=== PATIENT | female | born 1970 | race Caucasian/White ===

== ENCOUNTER 2016-12-07 23:07 | Emergency (ER) | payer OTHER ==
[2016-12-08 00:35] LABS: HEMOGLOBIN 11.2 gm/dl (12.3-15.3); RED BLOOD COUNT 2.47 M/UL (4.00-5.10)
[2016-12-08 00:55] LABS: BUN/CREATININE RATIO 8 (0-10)
== END 2016-12-08 05:00 | disposition home or self-care (01) ==
LOC: ER1 23:07
PROVIDERS: Emergency Medicine
DX: S51.812A Laceration without foreign body of left forearm, initial encounter (principal); F32.9 Major depressive disorder, single episode, unspecified; X78.9XXA Intentional self-harm by unspecified sharp object, initial encounter
CPT/HCPCS: 36415; 80053; 80307; 81001; 83690; 84703; 85025; 87086; 93005; 99283; G0480

== ENCOUNTER 2016-12-19 16:33 | Observation (INO) | payer OTHER ==
[~2016-12-19] VITALS: Ht 165.1 cm; Wt 63.5 kg
[2016-12-19 17:03] LABS: HEMOGLOBIN 11.8 gm/dl (12.3-15.3); RED BLOOD COUNT 2.64 M/UL (4.00-5.10)
[2016-12-19 17:37] LABS: BUN/CREATININE RATIO 19 (0-10)
[2016-12-20 04:38] LABS: HEMOGLOBIN 10.2 gm/dl (12.3-15.3)
[2016-12-20 04:40] LABS: RED BLOOD COUNT 2.25 M/UL (4.00-5.10); WHITE BLOOD COUNT 3.5 K/UL (4.5-11.0)
[2016-12-20 04:53] LABS: BUN/CREATININE RATIO 20 (0-10)
[2016-12-20] MEDS ORDERED: ASPIRIN81 MG PO (17:21)
[2016-12-20] MEDS ORDERED: LIPITOR TAB 2020 MG PO (17:22)
[2016-12-20] MEDS ORDERED: VITAMIN B-121000 MC3 PO (17:23)
[2016-12-20] MEDS ORDERED: LISINOPRIL5 MG PO (17:24)
[2016-12-20] MEDS ORDERED: METOPROLOL TART25 MG PO (17:25)
[2016-12-20] MEDS ORDERED: NITROSTAT 0.40.4 MG SL (17:27)
== END 2016-12-20 17:50 | disposition home or self-care (01) ==
LOC: ER1 16:33 → ZEROF 18:01 → PROG CARE 18:35 → ZEROF 18:35 → PROG CARE 21:30
PROVIDERS: Family Medicine; ADMIT Internal Medicine
DX: R07.9 Chest pain, unspecified (principal); D51.9 Vitamin B12 deficiency anemia, unspecified; I25.10 Atherosclerotic heart disease of native coronary artery without angina pectoris; I25.2 Old myocardial infarction; E78.5 Hyperlipidemia, unspecified; F17.210 Nicotine dependence, cigarettes, uncomplicated; Z79.82 Long term (current) use of aspirin; Z79.899 Other long term (current) drug therapy; Z90.710 Acquired absence of both cervix and uterus
CPT/HCPCS: ECHO; 36415; 71010; 78452; 80048; 80053; 82550; 82553; 82607; 82746; 83874; 83921; 84484; 85025; 85027; 85610; 85730; 93005; 93017; 93306; 96374; 96375; 96376; 99285; A9502; G0378; J0280; J1650; J2270; J2405; J2785; J7030

== ENCOUNTER 2020-09-19 11:02 | Observation (INO) | payer OTHER ==
[~2020-09-19] VITALS: Ht 165.1 cm; Wt 81.6 kg
[~2020-09-19 11:02] MED LIST: ASPIRIN81 MG PO; ATORVASTATIN CA20 MG PO; BRILINTA 90 MG90 MG PO; CEFUROXIME250 MG PO; ECOTRIN81 MG PO; LIPITOR TAB 2020 MG PO; LISINOPRIL5 MG PO; LOPRESSOR 25 MG25 MG PO; METOPROLOL TART25 MG PO; NITROSTAT 0.40.4 MG SL; NITROSTAT0.4 MG SL; PHENERGAN 25 MG25 M1 PO; PLAVIX 75 MG TA75 MG PO; TYLENOL 325MG325 MG PO; VENTOLIN HFA 66.7 GM INH; VITAMIN B-1000 MCG/M SQ; VITAMIN B-121000 MC3 PO
[2020-09-19 11:50] LABS: HEMOGLOBIN 13.3 gm/dl (12.3-15.3); RED BLOOD COUNT 4.95 M/UL (4.00-5.10); WHITE BLOOD COUNT 5.3 K/UL (4.5-11.0)
[2020-09-19 12:08] LABS: BUN/CREATININE RATIO 12 (0-10)
[2020-09-19] MEDS ORDERED: ATORVASTATIN CA40 MG PO (13:51)
[2020-09-19] MEDS ORDERED: CYANOCOBAL1000 MCG/1 INJ (13:52)
[2020-09-19] MEDS ORDERED: DOCUSATE SODIU100 MG PO (13:52)
[2020-09-20 02:07] LABS: HEMOGLOBIN 12.4 gm/dl (12.3-15.3); RED BLOOD COUNT 4.54 M/UL (4.00-5.10); WHITE BLOOD COUNT 5.4 K/UL (4.5-11.0)
[2020-09-20 02:33] LABS: BUN/CREATININE RATIO 18 (0-10)
== END 2020-09-20 19:55 | disposition home or self-care (01) ==
LOC: ER1 11:02 → MED SURG 4 13:25 → CDU 13:25 → MED SURG 4 20:28
PROVIDERS: Emergency Medicine; Physician Assistant Medical; ADMIT Internal Medicine
DX: R07.9 Chest pain, unspecified (principal); I25.119 Atherosclerotic heart disease of native coronary artery with unspecified angina pectoris; I25.2 Old myocardial infarction; I10 Essential (primary) hypertension; F17.210 Nicotine dependence, cigarettes, uncomplicated; F12.90 Cannabis use, unspecified, uncomplicated; E78.5 Hyperlipidemia, unspecified; I25.5 Ischemic cardiomyopathy; F41.9 Anxiety disorder, unspecified; Z95.1 Presence of aortocoronary bypass graft; Z95.5 Presence of coronary angioplasty implant and graft; Z90.710 Acquired absence of both cervix and uterus; Z82.49 Family history of ischemic heart disease and other diseases of the circulatory system; Z79.82 Long term (current) use of aspirin; Z79.899 Other long term (current) drug therapy; Z91.14 Patient's other noncompliance with medication regimen; Z20.822 Contact with and (suspected) exposure to COVID-19
CPT/HCPCS: 36415; 71045; 80048; 80053; 80061; 82550; 82553; 83690; 83735; 83874; 84484; 84703; 85025; 85027; 85610; 85730; 93005; 96374; 96375; 99285; G0378; J2270; J2405; J3420; U0002

== ENCOUNTER 2021-06-09 13:58 | Emergency (ER) | payer OTHER ==
[~2021-06-09 13:58] MED LIST changes: +ATORVASTATIN CA40 MG PO; +CYANOCOBAL1000 MCG/1 INJ; +DOCUSATE SODIU100 MG PO
[2021-06-09 15:32] LABS: HEMOGLOBIN 12.7 gm/dl (12.3-15.3); RED BLOOD COUNT 4.03 M/UL (4.00-5.10); WHITE BLOOD COUNT 5.7 K/UL (4.5-11.0)
[2021-06-09 16:17] LABS: BUN/CREATININE RATIO 14 (0-10)
== END 2021-06-09 18:48 | disposition left against medical advice (07) ==
LOC: ER1 13:58
PROVIDERS: Emergency Medicine
DX: S40.022A Contusion of left upper arm, initial encounter (principal); S40.021A Contusion of right upper arm, initial encounter; R51.9 Headache, unspecified; R20.0 Anesthesia of skin; J44.9 Chronic obstructive pulmonary disease, unspecified; I10 Essential (primary) hypertension; F17.200 Nicotine dependence, unspecified, uncomplicated; Z95.1 Presence of aortocoronary bypass graft; Z20.822 Contact with and (suspected) exposure to COVID-19; W22.8XXA Striking against or struck by other objects, initial encounter
CPT/HCPCS: 70450; 71045; 80053; 82550; 82553; 83605; 83874; 84484; 85025; 85610; 85652; 85730; 86140; 87040; 99285; J7040; U0002

== ENCOUNTER → 2022-03-05 | Outpatient (CLI) | payer OTHER | LOC: HEART 5 09:32 | DX: J44.9 Chronic obstructive pulmonary disease, unspecified (principal) | CPT/HCPCS: 71046; 94060; 94729 ==